=== PATIENT | male | born 1980 | race Caucasian/White ===

== ENCOUNTER 2022-03-02 10:24 | Emergency (ER) | payer BC, OTHER ==
[2022-03-02 10:39] VITALS: BP 135/93; PULSE 70; RESP 20; TEMP 98.5; BMI 28.5
== END 2022-03-02 11:53 | disposition home or self-care (01) ==
LOC: FER 10:24
DX: S63.642A Sprain of metacarpophalangeal joint of left thumb, initial encounter (principal); V00.321A Fall from snow-skis, initial encounter
CPT/HCPCS: 73140-TC-LT-FY; 99283-25